=== PATIENT | male | born 1990 | race Caucasian/White ===

== ENCOUNTER 2019-02-07 18:41 | Inpatient (IN) | payer OTHER ==
[2019-02-07 20:32] LABS: ADD MAN DIFF? NO
[2019-02-07 20:33] LABS: WHITE BLOOD COUNT 17.2 10^3/ul (4.8-10.8)
[2019-02-07 20:33] LABS: BASOPHIL # 0.1 10^3/ul (0.0-0.1); BASOPHILS % 0.4 % (0.0-2.0); EOSINOPHILS # 0.2 10^3/ul (0.0-0.5); EOSINOPHILS % 1.2 % (0.0-7.0); HEMATOCRIT 48.5 % (42.0-52.0); HEMOGLOBIN 17.4 g/dl (14.0-18.0); LYMPHOCYTES # 2.4 10^3/ul (0.8-2.9); LYMPHOCYTES % 13.7 % (15.0-51.0); MEAN CORPUSCULAR HEMOGLOBIN 32.1 pg (29.0-33.0); MEAN CORPUSCULAR HGB CONC 35.9 g/dl (32.0-37.0); MEAN CORPUSCULAR VOLUME 89.5 fl (82.0-101.0); MEAN PLATELET VOLUME 11.1 fl (7.4-10.4); MONOCYTE # 0.7 10^3/ul (0.3-0.9); NEUTROPHIL # 13.8 10^3/ul (1.6-7.5); NEUTROPHILS % 80.1 % (39.0-77.0); PLATELET COUNT 209 10^3/UL (140-415); RED BLOOD COUNT 5.42 10^6/ul (4.70-6.10); RED CELL DISTRIBUTION WIDTH 10.8 % (11.5-14.5)
[2019-02-07 20:50] LABS: ADD UMIC YES; UR ASCORBIC ACID NEGATIVE (NEGATIVE); UR BILIRUBIN (Dip) NEGATIVE (NEGATIVE); UR BLOOD (Dip) NEGATIVE (NEGATIVE); UR CLARITY TURBID (CLEAR); UR COLOR AMBER (YELLOW); UR GLUCOSE (Dip) NEGATIVE (NEGATIVE); UR KETONES (Dip) NEGATIVE (NEGATIVE); UR LEUKOCYTE ESTERASE (Dip) NEGATIVE Leu/ul (NEGATIVE); UR NITRITE (Dip) NEGATIVE (NEGATIVE); UR RBC 3 /HPF (0-5); UR SPECIFIC GRAVITY (Dip) 1.024 (1.003-1.030); UR TOTAL PROTEIN (Dip) NEGATIVE (NEGATIVE); UR UROBILINOGEN (Dip) 1+ mg/dL (NEGATIVE); UR WBC 0 /HPF (0-5)
[2019-02-07 20:51] LABS: ALANINE AMINOTRANSFERASE 111 IU/L (13-69); ALBUMIN/GLOBULIN RATIO 1.56; ALKALINE PHOSPHATASE 70 IU/L (42-121); ANION GAP 14 (5-13); ASPARTATE AMINO TRANSFERASE 45 IU/L (15-46); BILIRUBIN,INDIRECT 0.3 mg/dl (0-1.1); BILIRUBIN,TOTAL 0.3 mg/dl (0.2-1.3); BLOOD UREA NITROGEN 13 mg/dl (7-20); CALCIUM 10.5 mg/dl (8.4-10.2); CARBON DIOXIDE 25 mmol/L (21-31); CHLORIDE 105 mmol/L (97-110); CREATININE 1.04 mg/dl (0.61-1.24); Estimated GFR > 60 mL/min (>60); GLUCOSE 109 mg/dl (70-220); LIPASE 96 U/L (23-300); POTASSIUM 4.5 mmol/L (3.5-5.1); SODIUM 144 mmol/L (135-144); TOTAL PROTEIN 8.2 g/dl (6.1-8.1)
[2019-02-07] MEDS: OLANZAPINE (ODT) 5 MG TAB ODT (22:10)
[2019-02-07] MEDS: HYDROCODONE/APAP (5/325) TAB PO (22:10)
[2019-02-07] MEDS: SOD CHLORIDE 0.9% 1,000 ML IV ×2 (22:11→22:34)
[2019-02-07] MEDS: PIPER-TAZO 3.375 GM IV (PMX) 100 ML IVPB (22:42)
[2019-02-07] MEDS ORDERED: ONDANSETRON 4 MG INJ IV ×2 (23:00→23:30)
[2019-02-07] MEDS ORDERED: ACETAMINOPHEN 325 MG TAB PO ×2 (23:00→23:30)
[2019-02-07] MEDS ORDERED: BISACODYL (EC) 5 MG TAB PO (23:30)
[2019-02-07] MEDS ORDERED: NACL 0.9% 3 ML SYG IV (23:30)
[2019-02-07] MEDS ORDERED: DOCUSATE SODIUM 100 MG CAP PO (23:30)
[2019-02-08] MEDS: SOD CHLORIDE 0.9% 1,000 ML IV ×3 (00:56→23:43)
[2019-02-08] MEDS: morphine 2 MG INJ IV (00:56)
[2019-02-08] MEDS: PIPER-TAZO 3.375 GM IV (PMX) 100 ML IVPB ×4 (04:34→23:42)
[2019-02-08 06:08] LABS: ALANINE AMINOTRANSFERASE 88 IU/L (13-69); ALBUMIN 4.1 g/dl (3.3-4.9); ALBUMIN/GLOBULIN RATIO 1.57; ALKALINE PHOSPHATASE 50 IU/L (42-121); ANION GAP 10 (5-13); ASPARTATE AMINO TRANSFERASE 33 IU/L (15-46); BILIRUBIN,INDIRECT 0.7 mg/dl (0-1.1); BILIRUBIN,TOTAL 0.7 mg/dl (0.2-1.3); BLOOD UREA NITROGEN 11 mg/dl (7-20); CALCIUM 9.3 mg/dl (8.4-10.2); CARBON DIOXIDE 24 mmol/L (21-31); CHLORIDE 110 mmol/L (97-110); CHOL/HDL RATIO 5.7 RATIO; CHOLESTEROL 173 mg/dl (100-200); CREATININE 0.84 mg/dl (0.61-1.24); Estimated GFR > 60 mL/min (>60); GLUCOSE 95 mg/dl (70-220); HDL CHOLESTEROL 30 mg/dl (30-63); LDL CHOLESTEROL,CALCULATED 88 mg/dl; MAGNESIUM 1.9 mg/dl (1.7-2.5); POTASSIUM 4.4 mmol/L (3.5-5.1); SODIUM 144 mmol/L (135-144); TOTAL PROTEIN 6.7 g/dl (6.1-8.1); TRIGLYCERIDES 273 mg/dl (0-149)
[2019-02-08 06:49] LABS: ADD MAN DIFF? NO
[2019-02-08 07:09] LABS: HEMOGLOBIN A1C 4.6 % (0-5.9)
[2019-02-08 08:19] LABS: BASOPHILS % 0.4 % (0.0-2.0); EOSINOPHILS # 0.3 10^3/ul (0.0-0.5); EOSINOPHILS % 3.2 % (0.0-7.0); HEMATOCRIT 43.4 % (42.0-52.0); HEMOGLOBIN 15.3 g/dl (14.0-18.0); LYMPHOCYTES # 3.2 10^3/ul (0.8-2.9); LYMPHOCYTES % 35.2 % (15.0-51.0); MEAN CORPUSCULAR HEMOGLOBIN 31.9 pg (29.0-33.0); MEAN CORPUSCULAR HGB CONC 35.3 g/dl (32.0-37.0); MEAN CORPUSCULAR VOLUME 90.4 fl (82.0-101.0); MEAN PLATELET VOLUME 11.6 fl (7.4-10.4); MONOCYTE # 0.6 10^3/ul (0.3-0.9); MONOCYTES % 6.2 % (0.0-11.0); NEUTROPHIL # 4.9 10^3/ul (1.6-7.5); NEUTROPHILS % 54.6 % (39.0-77.0); PLATELET COUNT 168 10^3/UL (140-415)
[2019-02-08 08:19] LABS: WHITE BLOOD COUNT 9.1 10^3/ul (4.8-10.8)
[2019-02-08] MEDS ORDERED: FENTAnyl 50 MCG/ML VIAL (20:29)
[2019-02-08] MEDS ORDERED: ROPIVACAINE 0.5 % 30 ML VIAL (20:31)
[2019-02-08] MEDS: BUPIVACAINE 0.5%/EPI (SDV) 30 ML INJ (21:09)
[2019-02-08] MEDS: LIDOCAINE 1% (MPF) 30 ML INJ (21:09)
[2019-02-08] MEDS ORDERED: SUGAMMADEX SODIUM 200 MG/2 ML VIAL IV (21:20)
[2019-02-08] MEDS ORDERED: PROPOFOL 20 ML (21:20)
[2019-02-08] MEDS ORDERED: SUCCINYLCHOLINE CHLORIDE 100 MG/5 ML SYG IV (21:20)
[2019-02-08] MEDS ORDERED: ROCURONIUM 50 MG INJ (21:20)
[2019-02-08] MEDS ORDERED: LIDOCAINE 100 MG SYRINGE (21:20)
[2019-02-08] MEDS ORDERED: KETOROLAC 30 MG INJ IV (21:30)
[2019-02-08] MEDS ORDERED: MEPERIDINE 25 MG INJ (21:47)
[2019-02-08] MEDS ORDERED: HYDROmorphONE 1 MG/5 ML IV SYRINGE IV ×2 (21:57→22:00)
[2019-02-08] MEDS ORDERED: FENTAnyl 50 MCG/ML VIAL IV ×2 (22:00)
[2019-02-08] MEDS ORDERED: LABETALOL HCL 20MG INJ IV (22:00)
[2019-02-08] MEDS ORDERED: HYDROCODONE/APAP (5/325) TAB PO (22:00)
[2019-02-08] MEDS ORDERED: hydrALAzine 20 MG INJ IV (22:00)
[2019-02-08] MEDS ORDERED: HYDROmorphONE 0.5 MG/0.5 ML SYG IV (22:00)
[2019-02-08] MEDS: MEPERIDINE 25 MG INJ IV (22:15)
[2019-02-08] MEDS: HYDROmorphONE 1 MG/5 ML IV SYRINGE IV ×2 (22:20→22:23)
[2019-02-08] MEDS: FENTAnyl 50 MCG/ML VIAL IV ×2 (22:25→22:48)
[2019-02-08] MEDS: KETOROLAC 30 MG INJ IV (23:42)
[2019-02-09 06:05] LABS: ADD MAN DIFF? NO
[2019-02-09] MEDS: KETOROLAC 30 MG INJ IV ×2 (06:22→11:45)
[2019-02-09] MEDS: PIPER-TAZO 3.375 GM IV (PMX) 100 ML IVPB ×2 (06:23→11:45)
[2019-02-09 07:31] LABS: ANION GAP 10 (5-13); BLOOD UREA NITROGEN 12 mg/dl (7-20); CALCIUM 8.8 mg/dl (8.4-10.2); CARBON DIOXIDE 27 mmol/L (21-31); CHLORIDE 107 mmol/L (97-110); CREATININE 1.05 mg/dl (0.61-1.24); Estimated GFR > 60 mL/min (>60); GLUCOSE 79 mg/dl (70-220); MAGNESIUM 1.7 mg/dl (1.7-2.5); PHOSPHORUS 3.7 mg/dl (2.5-4.9); POTASSIUM 4.5 mmol/L (3.5-5.1); SODIUM 144 mmol/L (135-144)
[2019-02-09 08:00] LABS: WHITE BLOOD COUNT 8.4 10^3/ul (4.8-10.8)
[2019-02-09 08:01] LABS: BASOPHILS % 0.2 % (0.0-2.0); EOSINOPHILS # 0.2 10^3/ul (0.0-0.5); HEMATOCRIT 41.2 % (42.0-52.0); HEMOGLOBIN 14.4 g/dl (14.0-18.0); LYMPHOCYTES # 2.3 10^3/ul (0.8-2.9); LYMPHOCYTES % 27.6 % (15.0-51.0); MEAN CORPUSCULAR HEMOGLOBIN 31.9 pg (29.0-33.0); MEAN CORPUSCULAR VOLUME 91.4 fl (82.0-101.0); MEAN PLATELET VOLUME 11.3 fl (7.4-10.4); MONOCYTE # 0.5 10^3/ul (0.3-0.9); MONOCYTES % 6.1 % (0.0-11.0); NEUTROPHIL # 5.4 10^3/ul (1.6-7.5); NEUTROPHILS % 63.6 % (39.0-77.0); PLATELET COUNT 150 10^3/UL (140-415); RED BLOOD COUNT 4.51 10^6/ul (4.70-6.10); RED CELL DISTRIBUTION WIDTH 10.9 % (11.5-14.5)
[2019-02-09] MEDS: SOD CHLORIDE 0.9% 1,000 ML IV ×2 (08:30→10:16)
== END 2019-02-09 15:29 | disposition home or self-care (01) | DRG 343 ==
LOC: PP2 22:35 → E/R 18:41
PROC: 0DTJ4ZZ Resection of Appendix, Percutaneous Endoscopic Approach (ICD-10-PCS; principal; 2019-02-08 20:27)
DX: K35.80 Unspecified acute appendicitis (principal); F17.200 Nicotine dependence, unspecified, uncomplicated; Z68.30 Body mass index [BMI] 30.0-30.9, adult; K40.20 Bilateral inguinal hernia, without obstruction or gangrene, not specified as recurrent
CPT/HCPCS: 36415; 74176; 80048; 80053; 80061; 81001; 83036; 83690; 83735; 84100; 84443; 85025; 87040; 88304; 99291-25